=== PATIENT | female | born 1955 | race Caucasian/White ===

== ENCOUNTER 2016-08-12 11:35 | Day surgery (SDC) | payer OTHER ==
[~2016-08-12] VITALS: Ht 165.1 cm; Wt 84.3 kg
[~2016-08-12 11:35] MED LIST: 0.9% Sodium Chloride 1,000 ML IV PRN; ASPI-973 PO; HYG25 PO; IBUP800T28 PO; LEVO175T5 PO; LOSA100T29 PO; MULT-36 PO; OMEP20CA11 PO; RANI150C4 PO; Sodium Chloride LOK Flush 10 mL Syringe IV PRN; fentaNYL-PF 50 mCg/mL 2 mL Inj IVPUSH PRN
[2016-08-12 11:52] VITALS: BP 131/91; PULSE 75; RESP 14; O2SAT 100
[2016-08-12] MEDS ORDERED: HYDR25TA4 PO (11:57)
[2016-08-12 12:49] VITALS: BP 117/76; PULSE 59; RESP 16; O2SAT 100
[2016-08-12 12:59] VITALS: BP 107/70; PULSE 59; RESP 16; O2SAT 99
[2016-08-12 13:09] VITALS: BP 109/73; PULSE 61; RESP 16; O2SAT 99
--- NOTE | 2016-08-12 21:44 | ENDO ---
[address] [address] ENDOSCOPY PROCEDURE PATIENT: JOVANY BARAJAS : 1955 MR#: [id number] ADMIT: 08/12/2016 JOB ID: [id number] DATE: 08/12/2016 PRIMARY PROVIDER: Carey Gardiner MD. PROCEDURE: Colonoscopy. INDICATIONS: A 61-year-old female who reports for colon cancer screening. EQUIPMENT: PCF H 190 DL. SEDATION: 4 mg Versed, 125 mcg fentanyl. COMPLICATIONS: None identified. BOWEL PREPARATION: Fair, adequate exam. PROCEDURE INFORMATION: After the risks and benefits were explained, written and verbal informed consent was obtained. The patient was brought into the endoscopy suite and placed into the left lateral decubitus position. Sedation was achieved as above. A digital rectal examination accomplished. No significant pathology appreciated. The scope was introduced into the rectum and advanced to the cecum as identified by the appendiceal orifice and ileocecal valve. The scope was slowly withdrawn to carefully examine the mucosa for any defects or lesions. Retroflexed views were avoided in the rectum. Multiple direct views were made through the dentate line. The colon was decompressed, the scope removed from the patient who tolerated the procedure well. FINDINGS: No significant polyps, mass lesions, or inflammatory features identified throughout. ENDOSCOPIC DIAGNOSES: Visually unremarkable colonoscopy to cecum. RECOMMENDATIONS: Repeat colonoscopy in 10 years' time, sooner should symptoms warrant.
== END 2016-08-12 23:59 | disposition home or self-care (01) ==
LOC: END 11:35
PROVIDERS: ATTEND Internal Medicine Gastroenterology
DX: Z12.11 Encounter for screening for malignant neoplasm of colon (principal); I10 Essential (primary) hypertension; E66.9 Obesity, unspecified; Z68.30 Body mass index [BMI] 30.0-30.9, adult
CPT/HCPCS: G0121; G0500; J7030